=== PATIENT | male | born 1970 | race African-American/Black ===

== ENCOUNTER 2022-09-27 08:49 | Inpatient (IN) | payer OTHER ==
[2022-09-27 09:53] VITALS: BMI 24.0
[2022-09-27] MEDS ORDERED: IBUPROFEN 400 MG TABLET (FP) PO PRN (10:57)
[2022-09-27] MEDS ORDERED: MAGNESIUM HYDROX 2400MG/30ML ORAL SUSPENSION 30 ML CUP PO PRN (10:57)
[2022-09-27] MEDS ORDERED: MAG HYDROX/AL HYDROX/SIMETH 30 ML UNIT-DOSE CUP PO PRN (10:57)
[2022-09-27] MEDS ORDERED: DICYCLOMINE HCL 10 MG CAPSULE PO PRN (10:57)
[2022-09-27] MEDS ORDERED: NALOXONE HCL (KLOXXADO) 8 MG SPRAY NS PRN (10:57)
[2022-09-27] MEDS ORDERED: BENZOCAINE/MENTHOL (CHLORASEPTIC ) LOZENGE MM PRN (10:57)
[2022-09-27] MEDS ORDERED: NICOTINE 10 MG CARTRIDGE (INHALER) IH PRN (10:57)
[2022-09-27] MEDS ORDERED: ONDANSETRON *ODT* 4 MG TABLET SL PRN (10:57)
[2022-09-27] MEDS ORDERED: LOPERAMIDE HCL 2 MG CAPSULE PO PRN (10:57)
[2022-09-27] MEDS ORDERED: POLYETHYLENE GLYCOL (HEALTHYLAX) 3350 17 GM PACKET PO PRN (10:57)
[2022-09-27] MEDS ORDERED: IBUPROFEN 600 MG TABLET (FP) PO PRN (10:57)
[2022-09-27] MEDS ORDERED: ACETAMINOPHEN 325 MG TABLET (FP) PO PRN (10:57)
[2022-09-27] MEDS ORDERED: BISMUTH SUBSALICYLATE 524 MG/30 ML PO PRN (10:57)
[2022-09-27] MEDS ORDERED: methaDONE HCL 10 MG TABLET (FOR DETOX USE ONLY) PO ONE (11:15)
[2022-09-27] MEDS ORDERED: methaDONE HCL 10 MG TABLET (FOR DETOX USE ONLY) ONE (11:20)
[2022-09-27] MEDS: diazePAM 5 MG TABLET PO PRN (12:30)
[2022-09-27] MEDS: ACETAMINOPHEN 325 MG TABLET (FP) PO PRN ×2 (12:32→17:57)
[2022-09-27] MEDS: diazePAM 5 MG TABLET PO SCH ×2 (17:55→22:26)
[2022-09-27] MEDS: THIAMINE HCL 100 MG TABLET (FP) PO SCH (22:23)
[2022-09-27] MEDS: MELATONIN 5 MG TABLETS PO SCH (22:23)
[2022-09-27] MEDS: METHOCARBAMOL 500 MG TABLET PO PRN (22:24)
[2022-09-28] MEDS: diazePAM 5 MG TABLET PO SCH ×4 (05:45→22:09)
[2022-09-28] MEDS: PRENATAL VITAMINS W/ FOLIC ACID TABLET (FP) PO SCH (10:05)
[2022-09-28] MEDS: cloNIDine HCL 0.1 MG TABLET PO PRN (10:09)
[2022-09-28] MEDS: METHOCARBAMOL 500 MG TABLET PO PRN ×2 (10:09→22:07)
[2022-09-28 12:04] LABS: HEMATOCRIT 30.8 % (35.4-49); HEMOGLOBIN 9.2 GM/dL (11.7-16.9); MCHC 29.7 g/dl (32.0-35.9); MEAN CELL VOLUME 70.8 fl (80-96); MEAN PLT VOLUME 7.3 fl (7.5-11.1); PLATELET COUNT 407 10^3/uL (134-434); RBC 4.35 M/mm3 (4.00-5.60); RDW 20.9 % (11.9-15.9); WHITE BLOOD COUNT 7.2 K/mm3 (4.0-10.0)
[2022-09-28 12:19] LABS: CALCIUM 8.5 mg/dL (8.5-10.1)
[2022-09-28 12:20] LABS: ALBUMIN 3.1 g/dl (3.4-5.0); BLOOD UREA NITROGEN 10.9 mg/dL (7-18)
[2022-09-28 12:21] LABS: CREATININE 1.3 mg/dL (0.55-1.3)
[2022-09-28 12:23] LABS: BILIRUBIN,TOTAL 0.2 mg/dL (0.2-1); TOT PROT 6.6 g/dl (6.4-8.2)
[2022-09-28] MEDS: ACETAMINOPHEN 325 MG TABLET (FP) PO PRN (17:27)
[2022-09-28] MEDS: THIAMINE HCL 100 MG TABLET (FP) PO SCH (22:07)
[2022-09-28] MEDS: MELATONIN 5 MG TABLETS PO SCH (22:07)
[2022-09-29] MEDS: diazePAM 5 MG TABLET PO SCH ×3 (05:26→22:26)
[2022-09-29] MEDS ORDERED: methaDONE HCL 10 MG TABLET (FOR DETOX USE ONLY) PO ONE (10:00)
[2022-09-29] MEDS: METHOCARBAMOL 500 MG TABLET PO PRN (10:36)
[2022-09-29] MEDS: PRENATAL VITAMINS W/ FOLIC ACID TABLET (FP) PO SCH (10:36)
[2022-09-29] MEDS: cloNIDine HCL 0.1 MG TABLET PO PRN ×2 (10:36→18:18)
[2022-09-29] MEDS: diazePAM 5 MG TABLET PO PRN ×2 (10:37→15:49)
[2022-09-29 22:04] VITALS: TEMP 97.8
[2022-09-29] MEDS: MELATONIN 5 MG TABLETS PO SCH (22:26)
[2022-09-29] MEDS: THIAMINE HCL 100 MG TABLET (FP) PO SCH (22:26)
[2022-09-30] MEDS ORDERED: diazePAM 5 MG TABLET PO SCH (06:00)
[2022-09-30] MEDS: PRENATAL VITAMINS W/ FOLIC ACID TABLET (FP) PO SCH (09:54)
[2022-09-30 10:55] VITALS: BP 153/86; PULSE 86; RESP 16
[2022-10-01] MEDS ORDERED: diazePAM 5 MG TABLET PO ONE (06:00)
[2022-10-01] MEDS ORDERED: methaDONE HCL 10 MG TABLET (FOR DETOX USE ONLY) PO ONE (10:00)
[2022-10-01 22:50] LABS: SICKLE CELL SCREEN NEGATIVE (NEGATIVE)
== END 2022-09-30 08:40 | disposition left against medical advice (07) | DRG 770 ==
LOC: YASAS 08:49 → Y3N 11:46
PROVIDERS: ADMIT Allergy & Immunology; ATTEND Surgery
PROC: HZ2ZZZZ Detoxification Services for Substance Abuse Treatment (ICD-10-PCS; principal; 2022-09-27)
DX: F11.23 Opioid dependence with withdrawal (principal); F10.230 Alcohol dependence with withdrawal, uncomplicated; F14.20 Cocaine dependence, uncomplicated; F12.20 Cannabis dependence, uncomplicated; F17.210 Nicotine dependence, cigarettes, uncomplicated; D64.9 Anemia, unspecified; L85.3 Xerosis cutis; R63.4 Abnormal weight loss; Z68.24 Body mass index [BMI] 24.0-24.9, adult; Z88.0 Allergy status to penicillin; Z91.013 Allergy to seafood
CPT/HCPCS: 36415; 80053; 82962; 85027; 85660; 86780; 93005; 93010; C9803-CS; Q0162; U0003; U0005